=== PATIENT | female | born 1980 | race Caucasian/White ===

== ENCOUNTER 2019-10-14 07:02 | Emergency (ER) | payer OTHER ==
--- NOTE | 2019-10-14 07:17 | UC ---
Complaint Female HPI - HPI Summary HPI Summary: 39 year old female presents with c/o 2-3 days of increased urinary frequency and dysuria. She has been drinking plenty of water which helps her sx somewhat. Denies fever, flank pain, nausea nor vomiting. Does not some bladder pressure. - History Of Current Complaint Stated Complaint: UTI SYMPTOMS Time Seen by Provider: 10/14/19 07:16 Hx Obtained From: Patient Hx Last Menstrual Period: 10/26/15 Onset/Duration: Sudden Onset, Lasting Days - 2-3 Severity Currently: Mild Character: Burning Associated Signs And Symptoms: Negative: Vaginal Bleeding/Discharge - Allergies/Home Medications Allergies/Adverse Reactions: Allergies Allergy/AdvReac Type Severity Reaction Status Date / Time No Known Allergies Allergy Verified 10/14/19 07:21 Home Medications: Home Medications Nitrofurantoin Monohyd/M-Cryst [Macrobid 100 mg Capsule] 100 mg PO BID 10 Days # 20 cap 10/14/19 [Rx] PMH/Surg Hx/FS Hx/Imm Hx Previously Healthy: Yes - Surgical History Surgical History: Yes Surgery Procedure, Year, and Place: APPY - Family History Known Family History: Positive: None Family History: Father with diabetes. - Social History Alcohol Use: None Substance Use Type: None Smoking Status (MU): Light Every Day Tobacco Smoker When Did the Patient Quit Smoking/Using Tobacco: 5 YRS AGO - Immunization History Most Recent Influenza Vaccination: no Review of Systems All Other Systems Reviewed And Are Negative: Yes Constitutional: Negative: Fever, Chills Skin: Negative: Rash Eyes: Positive: Negative ENT: Positive: Negative Respiratory: Positive: Negative Cardiovascular: Positive: Negative Genitourinary: Positive: Dysuria, Frequency, Urgency. Negative: Hematuria, Vaginal/Penile Discharge Motor: Positive: Negative Neurovascular: Positive: Negative Musculoskeletal: Positive: Negative Neurological/Mental Status: Positive: Negative Psychological: Positive: Negative Is Patient Immunocompromised?: No Physical Exam Triage Information Reviewed: Yes Appearance: Well-Appearing Vital Signs Reviewed: Yes Eye Exam: Normal ENT Exam: Normal Neck: Positive: Supple, Nontender, No Lymphadenopathy Respiratory: Positive: Lungs clear, Normal breath sounds. Negative: Crackles, Rhonchi, Wheezing Cardiovascular: Positive: RRR, No Murmur Abdomen Description: Positive: Soft, Other: - mild suprapubic tenderness.. Negative: CVA Tenderness (R), CVA Tenderness (L), Distended, Guarding Neurological Exam: Normal Psychological Exam: Normal Skin Exam: Normal Complaint Female Dx - Differential Dx/Diagnosis Provider Diagnosis: Urinary tract infection Discharge ED - Sign-Out/Discharge Documenting (check all that apply): Patient Departure All imaging exams completed and their final reports reviewed: No Studies - Discharge Plan Condition: Stable Disposition: HOME Prescriptions: Nitrofurantoin Monohyd/M-Cryst [Macrobid 100 mg Capsule] 100 mg PO BID 10 Days # 20 cap Patient Education Materials: Urinary Tract Infection in Women (DC) Referrals: Brando Lisa MD [Primary Care Provider] - Additional Instructions: Drink plenty of water and take the antibiotics as prescribed. You will be contacted if the infection is not sensitive to the antibiotic prescribed. Follow =up with your Primary Care Physician if your symptoms persist or worsen. - Billing Disposition and Condition Condition: STABLE Disposition: Home
[2019-10-14 07:21] VITALS: BP 104/72
== END 2019-10-14 07:51 | disposition home or self-care (01) ==
LOC: UCCORT 07:02
DX: N39.0 Urinary tract infection, site not specified (principal); F17.290 Nicotine dependence, other tobacco product, uncomplicated
CPT/HCPCS: 81003; 87086; 99212; G0463

== ENCOUNTER 2019-10-31 10:52 | Emergency (ER) | payer OTHER ==
--- OUTSIDE RECORDS SUMMARY | 2019-10-31 11:36 | XMS REPORT | Continuity of Care Document ---
:1980 External Reference #:[id number] Author Name Brando Lisa MD Address [address] [place] [address] Problems Description No Information Available Social History Type Date Description Comments Sex Unknown Tobacco Use Start: Unknown Light tobacco smoker (10 or fewer cigarettes/day) Smoking Status Reviewed: 06/08/19 Light tobacco smoker (10 or fewer cigarettes/day) Allergies, Adverse Reactions, Alerts Active Allergies Reaction Severity Comments Date Prozac Weight gain 40# Mild 04/20/2019 Medications Description No Active Medications Immunizations CPT Code Status Date Vaccine Lot # [id number] Given 05/02/2013 Influenza Virus Vaccine, Quadrivalent, Split, Im Use 0.25ML 56759 Given 05/02/2013 Influenza Virus Vaccine, Quadrivalent, Split, Im Use 0.25ML 49772 Given 05/02/2013 Influenza Virus Vaccine, Quadrivalent, Split, Im Use 0.25ML 19694 Given 05/02/2013 Flu < 65 years 88600 Given 05/02/2013 Flu < 65 years 87754 Given 05/02/2013 Influenza Virus Vaccine, Quadrivalent, Split, Preservative Free 61567 Given 05/02/2013 Flumist 07794 Given 05/02/2013 Flu High Dose 53238 Given 05/02/2013 Influenza Virus Vaccine, Split Virus, Preservative Free Im 0.5ML 99439 Given 02/21/2013 Tdap - Boostrix/Adacel 66053 Given 02/21/2013 Tdap - Boostrix/Adacel 55878 Given 02/21/2013 Tdap - Boostrix/Adacel 54537 Given 03/29/2012 Influenza Virus Vaccine, Quadrivalent, Split, Im Use 0.25ML 28101 Given 03/29/2012 Influenza Virus Vaccine, Quadrivalent, Split, Im Use 0.25ML 39082 Given 03/29/2012 Influenza Virus Vaccine, Quadrivalent, Split, Im Use 0.25ML 80912 Given 03/29/2012 Flu < 65 years 92404 Given 03/29/2012 Influenza Virus Vaccine, Quadrivalent, Split, Preservative Free 51845 Given 03/29/2012 Flumist 84350 Given 03/29/2012 Flu High Dose 16773 Given 03/29/2012 Influenza Virus Vaccine Split Virus Intramuscular Use 0.5ML Vital Signs Date Vital Result Comment 06/08/2019 2:19pm BP Systolic 118 mmHg Height 65 inches 5'5" Weight 150.00 lb Heart Rate 69 /min Body Temperature 98.0 F O2 % BldC Oximetry 99 % BMI (Body Mass Index) 25.0 kg/m2 11/03/2018 1:50pm BP Systolic 122 mmHg Weight 146.00 lb Heart Rate 111 /min Body Temperature 98.9 F O2 % BldC Oximetry 99 % Results Test Acquired Date Facility Test Result H/L Range Note Poc Urinalysis 10/14/2019 [facility] Poc Glucose, Negative Negative [address] [place] [address] [phone] Poc Bilirubin, Urine Negative Negative Poc Ketone, Urine Negative Negative Poc Specific [place], Urine 1.025 Normal 1.010-1.030 Poc Blood, Urine Trace-intact Abnormal Negative 1 Poc pH, Urine 6.5 Normal 5-9 Poc Protein, Urine Negative Negative Poc Urobilinogen, Urine 0.2 Negative Poc Nitrite, Urine Negative Negative Poc Leukocytes, Urine Trace Abnormal Negative Poc Color, Urine Yellow Poc Clarity, Urine Cloudy Urine Culture And 10/14/2019 [facility] Urine SEE RESULT 2 , [address] [place] [address] [phone] CBC Auto Diff 06/12/2019 [facility] White Blood 5.0 Normal 3.5 - [address] Count 10^3/uL 10.8 [place], [place] [address] [phone] Red Blood Count 4.82 10^6/uL Normal 3.70-4.87 Hemoglobin 14.9 g/dL Normal 12.0-16.0 Hematocrit 45 % Normal 35-47 Mean Corpuscular Volume 92 fL Normal 80-97 Mean Corpuscular Hemoglobin 31 pg Normal 27-31 Mean Corpuscular HGB Conc 34 g/dL Normal 31-36 Red Cell Distribution Width 13 % Normal 10-15 Platelet Count 227 10^3/uL Normal 150-450 Mean Platelet Volume 8.6 fL Normal 7.4-10.4 Abs Neutrophils 3.4 10^3/uL Normal 1.5-7.7 Abs Lymphocytes 1.1 10^3/uL Normal 1.0-4.8 Abs Monocytes 0.5 10^3/uL Normal 0-0.8 Abs Eosinophils 0.1 10^3/uL Normal 0-0.6 Abs Basophils 0.1 10^3/uL Normal 0-0.2 Abs Nucleated RBC 0.0 10^3/uL Granulocyte % 66.8 % Lymphocyte % 21.0 % Monocyte % 9.5 % Eosinophil % 1.6 % Basophil % 1.1 % Nucleated Red Blood Cells % 0.0 Comp Metabolic 06/12/2019 [facility] Sodium 138 mmol/L Normal 135-145 Panel [address] [place] [address] [phone] Potassium 4.3 mmol/L Normal 3.5-5.0 Chloride 106 mmol/L Normal 101-111 Co2 Carbon Dioxide 29 mmol/L Normal 22-32 Anion Gap 3 mmol/L Normal 2-11 Glucose 98 mg/dL Normal 70-100 Blood Urea Nitrogen 14 mg/dL Normal 6-24 Creatinine 0.73 mg/dL Normal 0.51-0.95 BUN/Creatinine Ratio 19.2 Normal 8-20 Calcium 9.2 mg/dL Normal 8.6-10.3 Total Protein 6.4 g/dL Normal 6.4-8.9 Albumin 4.3 g/dL Normal 3.2-5.2 Globulin 2.1 g/dL Normal 2-4 Albumin/Globulin Ratio 2.0 Normal 1-3 Total Bilirubin 0.50 mg/dL Normal 0.2-1.0 Alkaline Phosphatase 47 U/L Normal 34-104 Alt 20 U/L Normal 7-52 Ast 16 U/L Normal 13-39 Egfr Non- 88.3 >60 Egfr 106.8 >60 4 Lipid Profile 06/12/2019 [facility] Triglycerides 67 mg/dL 5 (Trig/Chol/HDL) [address] [place] [address] [phone] Cholesterol 173 mg/dL 6 HDL Cholesterol 52.3 mg/dL 7 LDL Cholesterol 107 mg/dL 8 Laboratory test 06/12/2019 [facility] Vitamin D 36.9 ng/mL Normal 20-[address]) [place] [address] [phone] Vitamin B12 672 pg/mL Normal 180-914 10 TSH (Thyroid Stim Horm) 0.93 mcIU/mL Normal 0.34-5.60 1 Alarm Investigator: [id number] 3 SEE RESULT BELOW Name: SHELBY DE ANDA : [address]: Shun Sevilla MD Acct: [id number] Unit: [id number] AGE: 39 Location: [facility] Re10/14/19 SEX: F Status: DEP MINISTERIO SPEC: [id number] CANDIDO: 10/14/[address]: Shun Sevilla MD REQ: [id number] RECD: 10/14/19 STATUS: NAILA HOWELL DR: Brando Lisa MD _ SOURCE: URINE SPDESC: ORDERED: Urine Culture COMMENTS: [id number] Procedure Result Reported Site Urine Culture Final 10/15/19- 901 ML No Growth (<1,000 CFU/mL) * ML - Main Lab . END OF REPORT DEPARTMENT OF PATHOLOGY, [address] [place] [address] Mynor Nassar M.D. Director [facility] # [id number] 4 Because ethnic data is not always readily available, this report includes an eGFR for both -Americans and non- Americans. The National Kidney Disease Education Program (NKDEP) does not endorse the use of the MDRD equation for patients that are not between the ages of 18 and 70, are , have extremes of body size, muscle mass, or nutritional status, or are non- or non-. According to the National Kidney Foundation, irrespective of diagnosis, the stage of the disease is based on the level of kidney function: Stage Description GFR(mL/min/1.73 m(2)) 1 Kidney damage with normal or decreased GFR 90 2 Kidney damage with mild decrease in GFR 60-89 3 Moderate decrease in GFR 30-59 4 Severe decrease in GFR 15-29 5 Kidney failure <15 (or dialysis) 5 Desirable: <150 Borderline High: 150-199 High: 200-499 Very High: >500 6 Desirable: <200 Borderline High: 200-239 High: >239 7 Low: <40 Desirable: 40-60 High: >60 8 Desirable: <100 Near Optimal: 100-129 Borderline High: 130-159 High: 160-189 Very High: >189 9 Total 25-Hydroxyvitamin D2 and D3 (25-OH-VitD) <10 ng/mL (severe deficiency) 10-19 ng/mL (mild to moderate deficiency) 20-50 ng/mL (optimum levels) 51-80 ng/mL (increased risk of hypercalciuria) >80 ng/mL (toxicity possible) 10 Normal Range 180 to 914 Indeterminate Range 145 to 180 Deficient Range <145 Procedures Date Code Description Status 06/08/2019 78930 Brief Emotional/Behav Assessment W/ Scoring Doc Per Completed Standard Inst Medical Devices Description No Information Available Encounters Type Date Location Provider Dx Diagnosis Office Visit 06/08/2019 2:15p [facility] Z13.220 Encounter for screening for lipoid disorders Z13.1 Encounter for screening for diabetes mellitus R53.83 Other fatigue Z00.01 Encounter for general adult medical exam w abnormal findings Z13.31 Encounter for screening for depression Z68.24 Body mass index (BMI) 24.0-24.9, adult Z68.25 Body mass index (BMI) 25.0-25.9, adult Assessments Date Code Description Provider 06/08/2019 Z13.220 Encounter for screening for lipoid disorders ALBA Monterroso 06/08/2019 Z13.1 Encounter for screening for diabetes mellitus [facility] Mon[facility]roso 06/08/2019 R53.83 Other fatigue [facility] Mon[facility]roso 06/08/2019 Z00.01 Encounter for general adult medical examination [facility] with abnormal findings 06/08/2019 Z13.31 Encounter for screening for depression ALBA Mon[facility]roso 06/08/2019 Z68.24 Body mass index (BMI) 24.0-24.9, adult ALBA Monterroso 06/08/2019 Z68.25 Body mass index (BMI) 25.0-25.9, adult ALBA Monterroso Plan of Treatment 06/08/2019 - ALBA MonterrosoZ13.220 Encounter for screening for lipoid disordersComments:dicussed geting lipid screening and labwork for fatigue completed encouraged to exercise daily continue counseling will call patient regading labworkreutrn as rnzubkU12.1 Encounter for screening for diabetes gfnverskZ87.83 Other kbnpdrfZ51.01 Encounter for general adult medical examination with abnormal ywlsmozuO98.31 Encounter for screening for hekzbpejnfT48.24 Body mass index (BMI) 24.0-24.9, gebwhC53.25 Body mass index ( BMI) 25.0-25.9, adultAllNew Medication:No Active Medications - Functional Status Description No Information Available Mental Status Description No Information Available Referrals Description No Information Available
--- OUTSIDE RECORDS SUMMARY | 2019-10-31 11:36 | XMS REPORT | Continuity of Care Document ---
:1980 External Reference #:[id number] Author Name Brando Lisa MD Address [address] [place] [address] Problems Description No Information Available Social History [...] CPT Code Status Date Vaccine Lot # [id number] Given 05/02/2013 Influenza Virus Vaccine, Quadrivalent, Split, Im Use 0.25ML 87309 Given 05/02/2013 Influenza Virus Vaccine, Quadrivalent, Split, Im Use 0.25ML 87208 Given 05/02/2013 Influenza Virus Vaccine, Quadrivalent, Split, Im Use 0.25ML 00316 Given 05/02/2013 Flu < 65 years 85894 Given 05/02/2013 Flu < 65 years 09003 Given 05/02/2013 Influenza Virus Vaccine, Quadrivalent, Split, Preservative Free 43661 Given 05/02/2013 Flumist 19927 Given 05/02/2013 Flu High Dose 90864 Given 05/02/2013 Influenza Virus Vaccine, Split Virus, Preservative Free Im 0.5ML 77207 Given 02/21/2013 Tdap - Boostrix/Adacel 82064 Given 02/21/2013 Tdap - Boostrix/Adacel 78370 Given 02/21/2013 Tdap - Boostrix/Adacel 57639 Given 03/29/2012 Influenza Virus Vaccine, Quadrivalent, Split, Im Use 0.25ML 49742 Given 03/29/2012 Influenza Virus Vaccine, Quadrivalent, Split, Im Use 0.25ML 03529 Given 03/29/2012 Influenza Virus Vaccine, Quadrivalent, Split, Im Use 0.25ML 31364 Given 03/29/2012 Flu < 65 years 75166 Given 03/29/2012 Influenza Virus Vaccine, Quadrivalent, Split, Preservative Free 62021 Given 03/29/2012 Flumist 88006 Given 03/29/2012 Flu High Dose 93758 Given 03/29/2012 Influenza Virus Vaccine Split Virus [...] Result H/L Range Note Poc Urinalysis 10/14/2019 [facility] Poc Glucose, Negative Negative [address] [place] [address] [phone] Poc Bilirubin, Urine Negative Negative Poc Ketone, Urine Negative Negative Poc Specific [place], Urine 1.025 Normal 1.010-1.030 Poc Blood, Urine Trace-intact Abnormal Negative 1 Poc pH, Urine 6.5 Normal 5-9 Poc Protein, Urine Negative Negative Poc Urobilinogen, Urine 0.2 Negative Poc Nitrite, Urine Negative Negative Poc Leukocytes, Urine Trace Abnormal Negative Poc Color, Urine Yellow Poc Clarity, Urine Cloudy CBC Auto 06/12/2019 [facility] White Blood 5.0 10^3/uL Normal 3.5-10.[address] [place] [address] [phone] Red Blood Count 4.82 10^6/uL Normal 3.70-4.87 [...] Blood Cells % 0.0 Comp Metabolic 06/12/2019 [facility] Sodium 138 mmol/L Normal 135-[address] [place] [address] [phone] Potassium 4.3 mmol/L Normal 3.5-5.0 Chloride 106 [...] Egfr Non- 88.3 >60 Egfr 106.8 >60 2 Lipid Profile 06/12/2019 [facility] Triglycerides 67 mg/dL 3 (Trig/Chol/HDL) [address] [place] [address] [phone] Cholesterol 173 mg/dL 4 HDL Cholesterol 52.3 mg/dL 5 LDL Cholesterol 107 mg/dL 6 Laboratory test 06/12/2019 [facility] Vitamin D 36.9 ng/mL Normal 20-50 [address]) [place] [address] [phone] Vitamin B12 672 pg/mL Normal 180-914 8 TSH (Thyroid Stim Horm) 0.93 mcIU/mL Normal 0.34-5.60 1 Rn Angiography: [id number] 2 Because ethnic data is not always readily [...] 15-29 5 Kidney failure <15 (or dialysis) 3 Desirable: <150 Borderline High: 150-199 High: 200-499 Very High: >500 4 Desirable: <200 Borderline High: 200-239 High: >239 5 Low: <40 Desirable: 40-60 High: >60 6 Desirable: <100 Near Optimal: 100-129 Borderline High: 130-159 High: 160-189 Very High: >189 7 Total 25-Hydroxyvitamin D2 and D3 (25-OH-VitD) <10 ng/mL (severe deficiency) 10-19 ng/mL (mild to moderate deficiency) 20-50 ng/mL (optimum levels) 51-80 ng/mL (increased risk of hypercalciuria) >80 ng/mL (toxicity possible) 8 Normal Range 180 to 914 Indeterminate Range 145 to 180 Deficient Range <145 Procedures Date Code Description Status 06/08/2019 71032 Brief Emotional/Behav Assessment W/ Scoring Doc Per Completed Standard Inst Medical Devices Description No Information Available Encounters Type Date Location Provider Dx Diagnosis Office Visit 06/08/2019 2:15p [facility] Z13.220 Encounter for screening for lipoid disorders [...] counseling will call patient regading labworkreutrn as dnjzqcJ76.1 Encounter for screening for diabetes eirsiwvfX83.83 Other noynqmcL11.01 Encounter for general adult medical examination with abnormal ygillbutH86.31 Encounter for screening for jpfzjgmvbeX79.24 Body mass index (BMI) 24.0-24.9, htvseD51.25 Body mass index ( BMI) 25.0-25.9, adultAllNew Medication:No Active Medications - Functional Status Description No Information Available Mental Status Description No Information Available Referrals Description No Information Available
[2019-10-31 11:42] VITALS: BP 117/66
--- NOTE | 2019-10-31 12:09 | UC ---
Throat Pain/Nasal Librado HPI - HPI Summary HPI Summary: 39-year-old woman comes in with a chief complaint of upper respiratory tract infection symptoms for one week. Initially started she had body aches as had minimal runny nose she's had sore throat and plugged up ears. Most recently she has had some shortness of breath and chest tightness. 2 other coworkers have similar symptoms. Patient works in [place] which has 3 confirmed cases of covid 19. Patient has not had any tract contact with the known cases however she is concerned whether or not she would've had indirect contact. She would like to be tested for Covid 19. - History of Current Complaint Chief Complaint: UCGeneralIllness Stated Complaint: ST,EAR PAIN,COUGH Time Seen by Provider: 10/31/19 11:40 Hx Last Menstrual Period: 10/19/19 Pain Intensity: 0 - Allergies/Home Medications Allergies/Adverse Reactions: Allergies Allergy/AdvReac Type Severity Reaction Status Date / Time No Known Allergies Allergy Verified 10/14/19 07:21 Home Medications: Home Medications Azithromyxin CARLIN (NF) [Z-Carlin (Zithromax) 250 mg tabs #6] 2 tab PO .TODAY, THEN 1 DAILY #6 tab 10/31/19 [Rx] Ibuprofen TAB* [Advil TAB*] 400 mg PO ONCE 10/31/19 [History Confirmed 10/31/19] PMH/Surg Hx/FS Hx/Imm Hx Previously Healthy: Yes - Surgical History Surgical History: Yes Surgery Procedure, Year, and Place: appendectomy - Family History Known Family History: Positive: None Family History: Father with diabetes. - Social History Alcohol Use: None Substance Use Type: None Smoking Status (MU): Light Every Day Tobacco Smoker Type: Cigarettes Amount Used/How Often: 3 cigs/day When Did the Patient Quit Smoking/Using Tobacco: 5 YRS AGO - Immunization History Most Recent Influenza Vaccination: no Review of Systems All Other Systems Reviewed And Are Negative: Yes Constitutional: Positive: Other - see hpi Skin: Positive: Negative Eyes: Positive: Negative ENT: Positive: Sore Throat, Nasal Discharge - minimal Respiratory: Positive: Cough, Other - see hpi Cardiovascular: Positive: Other - see hpi Gastrointestinal: Positive: Negative Motor: Positive: Negative Neurovascular: Positive: Negative Musculoskeletal: Positive: Negative Neurological/Mental Status: Positive: Negative Psychological: Positive: Negative Is Patient Immunocompromised?: No Physical Exam Triage Information Reviewed: Yes Appearance: Well-Appearing, No Pain Distress, Well-Nourished Vital Signs: Initial Vital Signs Temp 98.5 F 10/31/19 11:40 Pulse 70 10/31/19 11:40 Resp 16 10/31/19 11:40 BP 117/66 10/31/19 11:40 Pulse Ox 98 10/31/19 11:40 Vital Signs Reviewed: Yes Eye Exam: Normal Eyes: Positive: Conjunctiva Clear ENT: Positive: Pharynx normal, TMs normal Neck: Positive: Supple Respiratory: Positive: Lungs clear, Normal breath sounds, No respiratory distress Cardiovascular: Positive: RRR Musculoskeletal: Positive: Strength Intact, ROM Intact Neurological: Positive: Alert, Muscle Tone Normal Psychological: Positive: Age Appropriate Behavior Skin Exam: Normal Throat Pain/Nasal Course/Dx - Course Course Of Treatment: Patient's symptoms are most consistent with an upper respiratory tract infection has been going on for 7 days and has progressed to a bronchitis. We discussed viral versus bacterial infections and the role of antibiotics. I did write a prescription for azithromycin after discussing with the patient and she would prefer to have the prescription so that if she does not improve with her chest congestion then she would start the antibiotic. Because the patient is concerned about the possibility of Covid 19 we also checked that. She'll be on home isolation and follow-up with the health department. She is to get reevaluated emergency department if worse. - Differential Dx/Diagnosis Provider Diagnosis: Bronchitis Discharge ED - Sign-Out/Discharge Documenting (check all that apply): Patient Departure All imaging exams completed and their final reports reviewed: No Studies - Discharge Plan Condition: Stable Disposition: HOME Prescriptions: Azithromyxin CARLIN (NF) [Z-Carlin (Zithromax) 250 mg tabs #6] 2 tab PO .TODAY, THEN 1 DAILY #6 tab Patient Education Materials: Acute Bronchitis (ED) Referrals: Brando Lisa MD [Primary Care Provider] - Additional Instructions: MAINTAIN AT HOME ISOLATION. [facility] DEPART[facility] WILL CONTACT YOU. IF YOU HAVE NOT HEARD FROM THEM BY TOMORROW, CONTACT THEM, . FOLLOW UP WITH YOUR DOCTOR IF NOT COMPLETELY IMPROVED. GO TO THE EMERGENCY DEPARTMENT IF WORSE OR ANY QUESTIONS OR CONCERNS. - Billing Disposition and Condition Condition: STABLE Disposition: Home
--- NOTE | 2019-11-03 07:18 | UC ---
- Progress Note Progress Note: please call the pt. negative COVID19 Course/Dx - Diagnoses Provider Diagnoses: Bronchitis Discharge ED - Sign-Out/Discharge Documenting (check all that apply): Patient Departure All imaging exams completed and their final reports reviewed: No Studies - Discharge Plan Condition: Stable Disposition: HOME Prescriptions: Azithromyxin CARLIN (NF) [Z-Carlin (Zithromax) 250 mg tabs #6] 2 tab PO .TODAY, THEN 1 DAILY #6 tab Patient Education Materials: Acute Bronchitis (ED) Referrals: Brando Lisa MD [Primary Care Provider] - Additional Instructions: MAINTAIN AT HOME ISOLATION. THE [facility] DEPARTMENT WILL CONTACT YOU. IF YOU HAVE NOT HEARD FROM THEM BY TOMORROW, CONTACT THEM, . FOLLOW UP WITH YOUR DOCTOR IF NOT COMPLETELY IMPROVED. GO TO THE EMERGENCY DEPARTMENT IF WORSE OR ANY QUESTIONS OR CONCERNS. - Billing Disposition and Condition Condition: STABLE Disposition: Home
== END 2019-10-31 12:32 | disposition home or self-care (01) ==
LOC: UCCORT 10:52
DX: J40 Bronchitis, not specified as acute or chronic (principal); F17.210 Nicotine dependence, cigarettes, uncomplicated
CPT/HCPCS: 99212; G0463; U0002

== ENCOUNTER 2020-09-09 02:08 | Observation (INO) ==
[2020-09-09] MEDS ORDERED: Iohexol 350 (CONTRAST) 500 ML MDV IV ONE (03:06)
[2020-09-09] MEDS ORDERED: Dexamethasone IV 4 MG/ML 5 ML VIAL (20 MG) IVPB ONE (05:15)
[2020-09-09] MEDS ORDERED: Dexamethasone IV 4 MG/ML VIAL 1 ml VIAL IV SLOW PU ONE (05:41)
[2020-09-09] MEDS ORDERED: Remdesivir 100 mg Vial 200 MG in NS 0.9% 250 ml 210 ML IV ONE (06:00)
[2020-09-09 06:28] LABS: INR 1.39 (0.82-1.09)
[2020-09-09 07:56] LABS: Albumin/Globulin Ratio 1.5 (1-3); BUN/Creatinine Ratio 17.5 (8-20); Calcium 9.2 mg/dL (8.6-10.3); EGFR Non-African American 104.1 (>60); Globulin 2.7 g/dL (2-4); Potassium 4.2 mmol/L (3.5-5.0); Total Bilirubin 0.4 mg/dL (0.2-1.0); Total Protein 6.7 g/dL (6.4-8.9)
[2020-09-09] MEDS: Enoxaparin 30 MG/0.3 ML SYR SUBCUT SCH ×2 (13:07→13:17)
[2020-09-09] MEDS: CMCS: Desvenlafaxine 50 mg TAB (NF) PO SCH ×3 (13:08→13:17)
[2020-09-09 16:59] VITALS: BP 108/61
== END 2020-09-09 17:45 | disposition home or self-care (01) ==
LOC: ED 02:08 → INTOOBSV 05:33 → MED 05:33
PROVIDERS: ADMIT Internal Medicine; ATTEND Internal Medicine